=== PATIENT | female | born 2000 | race Caucasian/White ===

== ENCOUNTER 2023-09-05 01:58 | Emergency (ER) | payer BC ==
[2023-09-05 02:14] VITALS: BP 115/78; PULSE 96; RESP 18; TEMP 98.3; BMI 28.3
[2023-09-05] MEDS ORDERED: DEXAMETHASONE SOD PHOSPHATE 10 MG/1 ML VIAL ONE (03:01)
[2023-09-05] MEDS: DEXAMETHASONE LIQUID 0.5 MG/5 ML PO ONE (03:03)
[2023-09-05] MEDS: LORATADINE 10 MG TABLET PO ONE (03:03)
[2023-09-05 03:31] LABS: THROAT:GRP A STREP NOT DETECTED (NOTDETECTED)
== END 2023-09-05 03:55 | disposition home or self-care (01) ==
LOC: JER 01:58
DX: R05.9 Cough, unspecified (principal); R07.0 Pain in throat; R00.0 Tachycardia, unspecified; L29.9 Pruritus, unspecified; Z20.822 Contact with and (suspected) exposure to COVID-19
CPT/HCPCS: 0241U-QW; 87651; 99283-25